=== PATIENT | female | born 1980 | race Caucasian/White ===

== ENCOUNTER 2022-05-19 13:26 | Emergency (ER) | payer SELFPAY ==
[~2022-05-19] VITALS: Ht 157.5 cm; Wt 86.2 kg
[2022-05-19 13:36] VITALS: BP 99/60
--- NOTE | 2022-05-19 13:50 | NUR ---
PT TAKEN TO X RAY.
--- NOTE | 2022-05-19 13:54 | NUR ---
BIB SELF C/O COUGH, SHAY, EARS PAIN, SORE THROAT, RUNNY NOSE X 2 WEEKS. COVID TESTED NEGATIVE YESTERDAY. PMH: DENIES
--- NOTE | 2022-05-19 14:38 | NUR ---
FLU& COVID SIMONE SWABS DONE.
[2022-05-19 14:41] VITALS: BP 101/63
--- NOTE | 2022-05-19 14:41 | NUR ---
Patient discharged with v/s stable. Written and verbal after care instructions given and explained. Patient verbalized understanding. Ambulatory with steady gait. All questions addressed prior to discharge. Advised to follow up with PMD.
== END 2022-05-19 14:41 | disposition home or self-care (01) ==
LOC: MED 13:26
DX: R09.81 Nasal congestion (principal); Z20.822 Contact with and (suspected) exposure to COVID-19; J02.9 Acute pharyngitis, unspecified; R05.9 Cough, unspecified; R53.81 Other malaise; M79.10 Myalgia, unspecified site
CPT/HCPCS: 71045; 99284